=== PATIENT | female | born 1965 | race Caucasian/White ===

== ENCOUNTER → 2021-09-25 07:07 | Outpatient (CLI) | payer OTHER, SELFPAY ==
--- NOTE | ~2021-09-25 | MR_ITS ---
EXAMINATION: MR ankle LT wo con DATE: 09/25/2021 08:30 INDICATION: Left ankle pain TECHNIQUE: Magnetic resonance imaging (MRI) of the left ankle was performed without intravenous contr ast. Sequences included sagittal, coronal, and axial proton-density weighted fast spin echo without a nd with fat saturation. COMPARISON: None. FINDINGS: Medial ankle ligaments: Heterotopic ossification along the fibers of the deep deltoid ligament loss of the normally sharply d efined striated appearance consistent with scarring related to chronic sprain. Thickening of the supe rficial deltoid ligament particularly anteriorly consistent with additional scarring related to chron ic sprain. The superomedial component of the calcaneofibular ligament is torn distally at its navicul ar attachment where there is additional thickened scar tissue. Lateral ankle ligaments: The anterior and posterior inferior tibiofibular ligaments are normal. The posterior talofibular liga ment is normal. Mild thickening of the anterior talofibular and calcaneofibular ligaments consistent with mild scarring related to chronic sprains. Tendons: Achilles tendon is normal. Small amount of fluid extending along the peroneal tendon sheath consisten t with mild tenosynovitis. There is moderate tendinopathy and longitudinal split tearing of the peron eus brevis tendon centered at the tip of the lateral malleolus. Mild peroneus longus tendinopathy wit hout discrete tear.. The tibialis anterior and extensor hallucis longus and extensor digitorum longus tendons are normal. The tibialis posterior, flexor digitorum longus and flexor hallucis longus tendo ns are normal. Plantar fascia: Mild fusiform thickening of the central component of the plantar aponeurosis centered 2.5 cm from the calcaneal origin consistent with mild plantar fibroma. Bones/other: There is marrow edema at the cuboid along the floor of the cuboid tunnel. Marrow signal is otherwise normal. No fracture or pathologic marrow replacing process. 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 Additional mild osteoarthritis with mild subarticular edema at the first tarsal metatarsal joint. Fluid: Physiologic amount fluid in the joint spaces. IMPRESSION: 1. Peroneal tenosynovitis with moderate tendinopathy and longitudinal split tearing of the peroneus b matt tendon and mild peroneus longus tendinopathy without discrete tear. 2. Scarring consistent with chronic medial and lateral ankle sprains including tear of the superomedi al component of the spring ligament complex. 3. Mild osteoarthritis at the left ankle and first tarsal metatarsal joints with small regions of hig h-grade chondromalacia at the posterior medial rim of the talar dome. 4. Small plantar fibroma. Reviewed, dictated and finalized at location A. PROPELLED MINING MACHINE OPERATOR IMPRESSION: 1. Peroneal tenosynovitis with moderate tendinopathy and longitudinal split tea ring of the peroneus brevis tendon and mild peroneus longus tendinopathy withou t discrete tear. 2. Scarring consistent with chronic medial and lateral ankle sprains including tear of the superomedial component of the spring ligament complex. 3. 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 4. Small plantar fibroma.
--- NOTE | ~2021-09-25 | MR_ITS ---
EXAMINATION: MR ankle RT wo con DATE: 09/25/2021 08:15 INDICATION: Right ankle pain TECHNIQUE: Magnetic resonance imaging (MRI) of the right ankle was performed without intravenous cont rast. Sequences included sagittal, coronal, and axial proton-density weighted fast spin echo without and with fat saturation. COMPARISON: None. FINDINGS: Medial ankle ligaments: Heterotopic ossification along the fibers of the deep deltoid ligament loss of the normally sharply d efined striated appearance consistent with scarring related to chronic sprain. Thickening of the supe rficial deltoid ligament particularly anteriorly consistent with additional scarring related to chron ic sprain. The superomedial component of the calcaneonavicular/spring ligament complex is torn distal ly at its navicular attachment. Lateral ankle ligaments: The posterior inferior tibiofibular joint is normal. Thickening of the anterior inferior tibiofibular , anterior talofibular, calcaneofibular and posterior talofibular ligaments consistent with scarring related to chronic sprains. Tendons: Achilles tendon is normal. Small amount of fluid extending along the peroneal tendon sheath consisten t with mild tenosynovitis. Moderate tendinopathy of the peroneus brevis tendon and mild tendinopathy of the peroneus longus tendon without discrete tears. The tibialis anterior and extensor hallucis edith jose miguel and extensor digitorum longus tendons are normal. Mild tendinopathy at the distal tibialis histology teacher ior tendon near its navicular insertion. The flexor digitorum longus and flexor hallucis longus tendo ns are normal. Plantar fascia: Small plantar calcaneal spur and mild thickening of the central component of the plantar aponeurosis consistent with chronic enthesopathy without surrounding edema to suggest acute plantar fasciitis. Mi ld fusiform thickening of the slightly more distal central component of the plantar aponeurosis appro ximately 2 cm from the calcaneal origin consistent with a small fibroma. Bones/other: Prominent low signal intensity bone island at the cuboid. Otherwise normal bone marrow signal. No fra cture or pathologic marrow replacing process. Joint spaces appear relatively preserved. Fluid: Physiologic amount of fluid in the joint spaces. Small ganglion cyst tracking along the calcaneofibul ar ligament. IMPRESSION: 1. Peroneal tenosynovitis with moderate peroneus brevis tendinopathy and mild peroneus longus tendino lina without discrete tears. 2. Scarring consistent with prior sprains of both the medial collateral stabilizing ligaments of the ankle including tear of the superomedial component of the spring ligament complex. 3. 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 Reviewed, dictated and finalized at location A. SUPPLY WORKER IMPRESSION: 1. Peroneal tenosynovitis with moderate peroneus brevis tendinopathy and mild p eroneus longus tendinopathy without discrete tears. 2. Scarring consistent with prior sprains of both the medial collateral stabili zing ligaments of the ankle including tear of the superomedial component of the spring ligament complex. 3. 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
== END ==
PROVIDERS: Visit Provider Podiatrist Foot & Ankle Surgery
DX: M76.829 Posterior tibial tendinitis, unspecified leg (principal); M65.862 Other synovitis and tenosynovitis, left lower leg; M65.861 Other synovitis and tenosynovitis, right lower leg; M19.072 Primary osteoarthritis, left ankle and foot; D21.22 Benign neoplasm of connective and other soft tissue of left lower limb, including hip; S93.492A Sprain of other ligament of left ankle, initial encounter; S93.491A Sprain of other ligament of right ankle, initial encounter; M77.51 Other enthesopathy of right foot and ankle; D36.7 Benign neoplasm of other specified sites; I10 Essential (primary) hypertension
CPT/HCPCS: 73721

== ENCOUNTER 2022-06-14 10:41 | Emergency (ER) | payer OTHER, SELFPAY ==
[2022-06-14 12:31] VITALS: BP 133/77; PULSE 72; RESP 18; TEMP 36.3; O2SAT 99
--- NOTE | 2022-06-14 13:21 | ED.FEMALEGU ---
HPI - Female Genitourinary General Chief complaint: Urogenital-Female Stated complaint: uti complaint Source: patient Mode of arrival: ambulatory History of Present Illness HPI Narrative: This is a 57-year-old female who presented to our urgent care with complaints of burning when she urinates, urgency, frequency, and right-sided lower back pain. According to patient she developed symptoms last . She did not do anything at home to treat herself. The patient denies SOB, CP, palpitation, extremity numbness, lightheadedness, dizziness, constipation, diarrhea, chills, or fever. Discharge instructions reviewed with patient, as well as provided in writing per nursing staff. The instructions also include specific and strict return/GO TO THE ER as well as f/u information. All questions have been answered, and the patient and/or family deny any further questions with discharge and discharge plan. Related Data Home Medications Medication Instructions Recorded Confirmed atorvastatin 20 mg tablet 20 mg PO DAILY 06/14/22 06/14/22 duloxetine 20 mg capsule,delayed 20 mg PO DAILY 06/14/22 06/14/22 release metoprolol tartrate 50 mg tablet 50 mg PO DAILY 06/14/22 06/14/22 Allergies Allergy/AdvReac Type Severity Reaction Status Date / Time scallops AdvReac Unknown Other Verified 06/14/22 12:34 BUPROPION HCL AdvReac Unknown Other Uncoded 06/14/22 12:34 Review of Systems Review of Systems: A 14 organ system Review of Systems was performed and pertinent positives included in the HPI, otherwise remaining ROS is negative. Exam Narrative: GENERAL: This is a well-nourished, well-developed patient, in no apparent distress. HEAD: normocephalic, atraumatic. EYES: PERRL. Sclera clear/white. Vision is grossly intact. EARS: External ears normal, auditory canals clear and without drainage, TMs normal without perforation. Hearing grossly intact. NOSE: External nose normal with no obvious nasal discharge, nares without redness, no rhinorrhea. THROAT: Mucous membranes moist, posterior pharynx clear. NECK: Neck supple, non-tender without lymphadenopathy, masses or thyromegaly. CARDIOVASCULAR: Regular rate and rhythm without murmurs, gallops, or rubs. RESPIRATORY: Clear to auscultation. Breath sounds equal bilaterally. No wheezes, rales, or rhonchi. GASTROINTESTINAL: Abdomen soft, non-tender, nondistended. Bowel sounds are active. No hepato-splenomegaly, or palpable masses. No guarding. Positive CVA right lower back SKIN: warm, intact with no suspicious lesions or rash, good texture and turgor. NEURO: awake, alert, and oriented to person, place and time. There were no obvious focal neurologic abnormalities. EXTREMITIES: Normal range of motion. No edema. No calf tenderness. Course Course Emergency Course: Patient UA positive for leukocytes and blood she will be treated with Macrobid it is 100 mg b.i.d. times 5 days Level of Care: Express Care Visit Vital Signs Vital signs: Vital Signs Temperature 97.4 F L 06/14/22 12:31 Pulse Rate 72 06/14/22 12:31 Respiratory Rate 18 06/14/22 12:31 Blood Pressure 133/77 06/14/22 12:31 Pulse Oximetry 99 06/14/22 12:31 Oxygen Delivery Room Air 06/14/22 12:31 Temperature 97.4 F L 06/14/22 12:31 Pulse Rate 72 06/14/22 12:31 Respiratory Rate 18 06/14/22 12:31 Blood Pressure 133/77 06/14/22 12:31 Pulse Oximetry 99 06/14/22 12:31 Oxygen Delivery Room Air 06/14/22 12:31 MDM - Female Genitourinary MDM Narrative Medical decision making narrative: Patient will be treated for pyelonephritis UTI with Cipro. Differential Diagnosis Differential diagnosis: Likely urinary tract infection and bacterial vaginosis Lab Data Labs: Urine Glucose Negative Reference Range: Negative Urine Bilirubin Negative Reference Range: Negative Urine [place]
== END 2022-06-14 13:30 | disposition home or self-care (01) ==
PROVIDERS: Emergency Provider Nurse Practitioner
DX: N39.0 Urinary tract infection, site not specified (principal)
CPT/HCPCS: 81003; 87086; 87088; 99213; G0463